=== PATIENT | female | born 1970 | race African-American/Black ===

== ENCOUNTER 2025-05-10 19:35 | Emergency (ER) | payer SELFPAY ==
[~2025-05-10] VITALS: Ht 162.6 cm; Wt 82.0 kg
[2025-05-10 19:48] VITALS: TEMP 36.4; O2SAT 99
[2025-05-10] MEDS: ACETAMINOPHEN 500MG TABLET PO ONE (21:34)
[2025-05-10] MEDS ORDERED: CYCL5TAB3 MT (22:25)
[2025-05-10] MEDS ORDERED: IBUP-2030 MT (22:25)
[2025-05-10] MEDS: KETOROLAC 30MG/ML VIAL IM ONE (22:38)
[2025-05-10 23:47] VITALS: BP 129/87; PULSE 75; RESP 16; O2SAT 99
== END 2025-05-11 00:08 | disposition home or self-care (01) ==
LOC: ER 19:35
DX: M25.521 Pain in right elbow (principal); J45.909 Unspecified asthma, uncomplicated; Z79.899 Other long term (current) drug therapy; Z88.0 Allergy status to penicillin; W18.30XA Fall on same level, unspecified, initial encounter; Y93.89 Activity, other specified; Y92.89 Other specified places as the place of occurrence of the external cause; Y99.8 Other external cause status
CPT/HCPCS: 99283; 29105; 73060; 96372; J1885; A6449 ×2; A4565